=== PATIENT | male | born 1995 | race Caucasian/White ===

== ENCOUNTER 2023-01-31 07:12 | Emergency (ER) | payer OTHER ==
[2023-01-31] MEDS ORDERED: Tetracaine HCl/PF 0.5% 4 ML Bottle EYELF STA (07:29)
== END 2023-01-31 08:20 | disposition home or self-care (01) ==
LOC: MW.ED 07:12
DX: T15.82XA Foreign body in other and multiple parts of external eye, left eye, initial encounter (principal); F17.210 Nicotine dependence, cigarettes, uncomplicated
CPT/HCPCS: 99283; J3490